=== PATIENT | male | born 1965 | race Caucasian/White ===

== ENCOUNTER 2019-12-31 09:04 | Emergency (ER) | payer OTHER ==
[~2019-12-31] VITALS: Ht 185.4 cm; Wt 106.6 kg
[2019-12-31] MEDS ORDERED: NORCO 5-325 TA1 EAC2 PO (09:28)
[2019-12-31] MEDS ORDERED: CLEOCIN HCL300 MG PO (09:28)
[2019-12-31] MEDS ORDERED: CIPROFLOXACIN500 M1 PO (09:28)
[2019-12-31 10:27] VITALS: BP 131/85
== END 2019-12-31 10:29 | disposition home or self-care (01) ==
LOC: M.ERS 09:04
DX: S61.411A Laceration without foreign body of right hand, initial encounter (principal); Z88.0 Allergy status to penicillin; W54.0XXA Bitten by dog, initial encounter; Y93.89 Activity, other specified; Y92.89 Other specified places as the place of occurrence of the external cause; Y99.9 Unspecified external cause status